=== PATIENT | male | born 1970 | race Caucasian/White ===

== ENCOUNTER → 2023-01-18 | Outpatient (CLI) | payer MEDICARE, OTHER | LOC: COL.VAS 09:16 | DX: I82.412 Acute embolism and thrombosis of left femoral vein (principal); I82.492 Acute embolism and thrombosis of other specified deep vein of left lower extremity ==

== ENCOUNTER → 2023-02-16 | Outpatient (CLI) | payer MEDICARE, OTHER | LOC: COL.RAD 08:35 | DX: I82.4Z2 Acute embolism and thrombosis of unspecified deep veins of left distal lower extremity (principal); I82.412 Acute embolism and thrombosis of left femoral vein ==